=== PATIENT | female | born 1975 | race African-American/Black ===

== ENCOUNTER 2019-03-06 08:10 | Day surgery (SDC) | payer MEDICAID ==
[2019-03-06 08:38] LABS: BASOPHILS 0.5 % (0-2); EOSINOPHILS 4.4 % (0-7); HEMATOCRIT 34.6 % (36.0-48.0); HEMOGLOBIN 10.8 g/dL (12-16); IMMATURE GRANULOCYTES 0.2 % (0-5); LYMPHOCYTES 35.3 % (15-50); MCH 28.2 pg (26.0-34.0); MCHC 31.2 g/dL (31.0-37.0); MCV 90.3 fL (80.0-100.0); MEAN PLATELET VOLUME 10.3 fL (7.4-10.4); MONOCYTES 10.3 % (2-11); NEUTROPHILS 49.3 % (40-80); PLATELET COUNT 272 10x3/uL (130-400); RBC 3.83 10x6/uL (4.00-5.40); RDW 15.1 % (11.5-14.5); WBC 5.7 10x3/uL (4.8-10.8)
[2019-03-06 08:56] LABS: INR 1.12 (0.85-1.17); PROTIME 13.9 SECONDS (11.6-15.0)
[2019-03-06 09:06] LABS: ANION GAP 19.1 mmol/L (8-16); CALCIUM 9.5 mg/dL (8.5-10.1); CARBON DIOXIDE 22.8 mmol/L (21.0-32.0); CREATININE - SERUM 4.6 mg/dL (0.6-1.3); POTASSIUM - SERUM 4.9 mmol/L (3.5-5.1)
[2019-03-06] MEDS ORDERED: PLAVIX75 MG PO (10:16)
[2019-03-06] MEDS ORDERED: LIPITOR40 MG PO (10:17)
[2019-03-06] MEDS ORDERED: ELIQUIS2.5 MG PO (10:17)
[2019-03-06] MEDS ORDERED: SODIUM BICARBO650 MG PO (10:17)
[2019-03-06] MEDS ORDERED: CARDIZEM CD240 MG PO (10:18)
[2019-03-06] MEDS ORDERED: PHOSLO667 MG PO (10:18)
[2019-03-06] MEDS ORDERED: HYDRALAZINE HCL50 MG PO (10:19)
[2019-03-06] MEDS ORDERED: ISOSORBIDE MONO60 M1 PO (10:20)
[2019-03-06] MEDS ORDERED: PROTONIX40 MG PO (10:20)
[2019-03-06] MEDS ORDERED: MELATONIN5 MG PO (10:20)
[2019-03-06] MEDS ORDERED: CATAPRES TTS-20.2 MG TD (10:21)
[2019-03-06] MEDS ORDERED: PHENERGAN25 M1 PO (10:22)
[2019-03-06] MEDS ORDERED: FERRIC CITRATE210 MG PO (10:23)
[2019-03-06] MEDS ORDERED: SENSIPAR60 MG PO (10:23)
[2019-03-06] MEDS ORDERED: BUTALB-APAP-CA1 EACH PO (10:24)
[2019-03-06] MEDS ORDERED: FUROSEMIDE40 MG PO (10:24)
[2019-03-06] MEDS ORDERED: COREG25 MG PO (10:24)
[2019-03-06] MEDS ORDERED: MULTI-DAY VITAM1 TAB PO (10:25)
[2019-03-06 10:39] VITALS: BMI 23.2
[2019-03-06] MEDS ORDERED: ULTRAM50 MG PO (15:01)
--- NOTE | 2019-03-06 15:22 | NUR ---
OPA IN AIRWAY ON ADMIT
--- NOTE | 2019-03-06 16:15 | NUR ---
REC'D FROM RR. FAMILY AT BEDSIDE. DRESSING CDI TO LUE AND ABDOMEN. APPLE JUICE BROUGHT TO PATIENT.
--- NOTE | 2019-03-06 16:45 | NUR ---
TOLERATING APPLE JUICE. STILL UNABLE TO WIGGLE FINGERS. FAMILY AT BEDSIDE.
--- NOTE | 2019-03-06 17:15 | NUR ---
VALENTIN SUAREZ AND NURYS MARTINEZ BROUGHT TO PATIENT. NO C/O VOICED.
--- NOTE | 2019-03-06 18:00 | NUR ---
TOLERATED FULL LIQUIDS. IV DC'D FROM HEMOSPLIT AND PORT FLUSHED PER ORDER.
--- NOTE | 2019-03-06 18:10 | NUR ---
WRITTEN AND VERBAL DC INST. GIVEN TO PT ALONG WITH RX. VERBALIZED UNDERSTANDING.
--- NOTE | 2019-03-06 18:30 | NUR ---
DC'D HOME WITH FAMILY VIA PRIVATE VEHICLE. TAKEN TO VEHICLE VIA WC. STABLE AT TIME OF DC.
--- NOTE | 2019-03-17 21:54 | OP ---
PATIENT NAME: OC SOMMER MEDICAL RECORD: [id number] :79 LOCATION:[facility] ADMISSION DATE: SURGEON: JEANMARIE BECERRA MD DATE OF OPERATION: 03/06/2019 She is operated as an outpatient today on 03/06/2019. PREOPERATIVE DIAGNOSIS: End-stage renal disease and dependence on hemodialysis and noncompliance with peritoneal dialysis prescription and difficulty managing peritoneal dialysis. POSTOPERATIVE DIAGNOSIS: End-stage renal disease and dependence on hemodialysis and noncompliance with peritoneal dialysis prescription and difficulty managing peritoneal dialysis. OPERATION PERFORMED: Implantation of a left upper extremity proximal brachial artery to proximal basilic vein Artegraft AV graft and also removal of peritoneal dialysis catheter. SURGEON: Jeanmarie Becerra MD ANESTHESIA: Regional block plus general per [employer]LECT[employer]ANGE [employer]PARER via LMA. REFERRING PHYSICIAN: Nicolas Perez MD PREOPERATIVE NOTE: This 43-year-old -Citizen Of [place] female from [place], has end-stage renal disease and is on dialysis. She had been on peritoneal dialysis for some time, but since having had a stroke, she has been difficult and noncompliant and hard to manage. She is now on PD with [facility]. I have been asked to provide long-term hemodialysis access in her arms despite her very small blood vessels and to remove her peritoneal dialysis catheter. Under anesthesia and regional block, the patient was placed in supine position, prepped and draped in a sterile manner. I examined her first with ultrasound and decided to go ahead with the proposed left arm axillary loop AV graft using Artegraft. I made a longitudinal incision and exposed the proximal brachial vein and the brachial artery. These vessels were dissected and controlled with Silastic loops. A standard 6-mm diameter 50 cm long Artegraft was prepared and one end bevelled. The vein was occluded and opened and flushed proximally and distally with heparinized saline and the graft was then anastomosed end-to-side to the vein with running 6-0 Prolene creating an anastomosis approximately 1 cm in length. The suture line was treated with BioGlue in a very small amount and Fibrillar and the suture line was hemostatic. The graft and vessel were flushed with heparinized saline and clamped. A counter incision was made just above the antecubital space and the graft placed in a tunnel passing down the medial aspect of the arm and then curving laterally and coursing up superiorly up to the original incision where it was shortened and beveled. The artery was occluded with Silastic loops and opened and a graft to artery anastomosis performed with continuous running 6-0 Prolene, and when that was completed, the suture line was found to be hemostatic and excellent flow developed immediately within the new AV graft. The wounds were irrigated with Ancef and infiltrated with 0.25% Marcaine without epinephrine. The wounds were closed with interrupted inverted 3-0 Vicryl and the upper incision. The skin was closed with a running intracuticular 4-0 Monocryl. Both incisions were sealed and closed with Dermabond glue and dressed with Maxorb Ag, Tegaderm, and Cavilon OPERATIVE REPORT [id number] OC SOMMER skin prep. Next, attention was turned to the abdomen which had been prepped and draped at the same time as the arm. The patient's peritoneal dialysis catheter exited the abdomen at about the level of the umbilicus and to the left of it. I made an incision over the palpable subcutaneous portion of the catheter. I found the superficial Dacron felt cuff to be right in the skin and this was freed and dissection then carried down deeper down into the rectus sheath where the deeper of the 2 cuffs was exposed and freed and the catheter was then removed. It was discarded. It was not sent for cultures or any other specimen. The wound was closed in layers with interrupted 3-0 Vicryl after irrigation with Ancef/gentamicin solution and infiltration with Marcaine. Skin was closed with interrupted 3-0 Vicryl sutures. Sterile [place] type or airstrip dressing was applied. The patient was awakened and taken to the recovery room in stable condition. I anticipate her going home to [place] this evening and returning to see me in my office next week. She can leave the original operative dressing intact and keep it dry and clean. Until then, she will continue her same medications. I did leave a prescription for 15 tablets of Tramadol 50 mg, she can take 1 p.o. q.4 hours as needed for pain. TRANSINT:[id number] Voice Confirmation ID: [id number] DOCUMENT ID: [id number] JEANMARIE BECERRA MD at [id number] CC: NICOLAS PEREZ [id number] DICTATION DATE: 03/06/19 4026 PNEUMATIC TUBE REPAIRER: 03/06/19 [id number] [facility] 03/06/19 [facility] [id number] [id number]
== END 2019-03-06 18:30 | disposition home or self-care (01) ==
LOC: D.OPS 08:10
PROVIDERS: Surgery; ATTEND Internal Medicine Nephrology
DX: N18.6 End stage renal disease (principal); Z99.2 Dependence on renal dialysis; Z91.15 Patient's noncompliance with renal dialysis; Z86.73 Personal history of transient ischemic attack (TIA), and cerebral infarction without residual deficits; Z01.812 Encounter for preprocedural laboratory examination